=== PATIENT | female | born 1985 | race Caucasian/White ===

== ENCOUNTER 2016-07-26 06:40 | Inpatient (IN) | payer OTHER ==
[2016-07-26] MEDS ORDERED: ELECTROLYTE-148 SOLN 500 ML IV ONE (07:00)
[2016-07-26] MEDS ORDERED: CITRIC ACID/SODIUM CITRATE 30 ML UNIT-DOSE CUP PO ONE (07:00)
[2016-07-26] MEDS: ELECTROLYTE-148 SOLN 1,000 ML IV SCH (08:00)
[2016-07-26 08:20] VITALS: BMI 32.2
--- NOTE | 2016-07-26 08:22 | HP ---
Past Medical History - Primary Care Physician PCP:: Aimee Yan - Admission Chief Complaint: 30yo P2 at 39.4wks prior c/s for twin gestation, presents for elective repeat c/s, +FM, no LOF, no Ctx, no VB History Source: Patient Limitations to Obtaining History: No Limitations - Past Medical History Gastrointestinal: Yes: Hemorrhoids (s/p repair) ...: 3 ...Para: 2 ...Term: 2 ...: 0 ...Spon : 1 ...Induced : 0 ...Multiple Gestation: 1 ...LMP: 10/23/15 ... Weeks Gestation by Dates: 39.4 ...EDC by Dates: 07/29/16 - Past Surgical History Past Surgical History: Yes: Hx Myomectomy: No Hx Transabdominal Cerclage: No - Smoking History Smoking history: Never smoked Have you smoked in the past 12 months: No - Alcohol/Substance Use Hx Alcohol Use: No - Social History Usual Living Arrangement: Yes: With Spouse History of Recent Travel: No Home Medications - Allergies Allergies/Adverse Reactions: Allergies Allergy/AdvReac Type Severity Reaction Status Date / Time No Known Drug Allergies Allergy Verified 06/25/15 10:37 - Home Medications Home Medications: Ambulatory Orders Vitamins (Sjr) - 1 tab PO DAILY 07/26/16 Review of Systems - Review of Systems Constitutional: reports: No Symptoms Eyes: reports: No Symptoms HENT: reports: No Symptoms Neck: reports: No Symptoms Cardiovascular: reports: No Symptoms Respiratory: reports: No Symptoms Gastrointestinal: reports: No Symptoms Genitourinary: reports: No Symptoms Breasts: reports: No Symptoms Reported Musculoskeletal: reports: No Symptoms Integumentary: reports: No Symptoms Neurological: reports: No Symptoms Endocrine: reports: No Symptoms Hematology/Lymphatic: reports: No Symptoms Psychiatric: reports: No Symptoms Pain Intensity: 0 Physical Exam - Maternity Constitutional: Yes: Well Nourished Eyes: Yes: WNL HENT: Yes: WNL Neck: Yes: WNL Cardiovascular: Yes: WNL Lungs: Clear to auscultation Breast(s): Yes: WNL - Abdominal Exam/OB Fundal Height: 39 Number of Fetuses: Single Presentation: Vertex Contractions: No Monitor Mode: External Heart Rate Location: [facility] Category: I - Vaginal Exam/OB Vaginal Bleediing: No Speculum Exam: No (deferred) Amniotic Membrane Status: Intact Presentation: Vertex/Position Station: -4 - Physical Exam Musculoskeletal: Yes: WNL Extremities: Yes: WNL Edema: No Integumentary: Yes: WNL Deep Tendon Reflex Grade: Normal +2 ...Motor Strength: WNL Psychiatric: Yes: WNL Assessment/Plan 30yo P2 with h/o prior c/s for Elective repeat c/s VSS, monitoring reasuring T&S x 2 Units HCt = 37 Placenta posterior Anesthesia aware
[2016-07-26] MEDS ORDERED: TUBERCULIN PPD 5 TU/0.1ML SYRINGE (IN PATIENT USE ONLY) ID ONE (10:00)
[2016-07-26] MEDS ORDERED: WITCH HAZEL 50% (TUCKS) 40 PAD/JAR PAD TP PRN (10:52)
[2016-07-26] MEDS ORDERED: IBUPROFEN 800 MG/8 ML IJ IVPB PRN (10:52)
[2016-07-26] MEDS ORDERED: BENZOCAINE 20% 57 GM BOTTLE TP PRN (10:52)
[2016-07-26] MEDS ORDERED: METHYLERGONOVINE MALEATE 0.2 MG/1 ML AMP IM PRN (10:52)
--- NOTE | 2016-07-26 10:59 | OP ---
Operative Note - Note: Operative Date: 07/26/16 Operation: at EGA 39w4d. Prior C/S Findings: Live baby boy in vtx presentation, no meconium in amniotic fluid, 9/9. Normal ut/tubes/ovaries. Post-Operative Diagnosis: Same as Pre-op Surgeon: Aimee Yan Installation Coordinator: Telly Singleton Anesthesiologist/PRINTER SLOTTER FEEDER: Lyubov Walter Anesthesia: Spinal Specimens Removed: Placenta Estimated Blood Loss (mls): 500 Drains & Tubes with Location: Springer Cath Drains, Volume Out (mls): 100 Blood Volume Replaced (mls): 0 Fluid Volume Replaced (mls): 1,400 Operative Report Dictated: Yes
[2016-07-26] MEDS ORDERED: ONDANSETRON 4 MG/2 ML VIAL IVPB PRN (11:05)
[2016-07-26] MEDS ORDERED: ACETAMINOPHEN 1000 MG/100 ML VIAL (NON FORMULARY) IVPB PRN (11:06)
[2016-07-26] MEDS: OXYTOCIN 20 UNITS in 0.9% NS 1,000 ML IV SCH ×2 (11:35→14:59)
--- NOTE | 2016-07-27 06:57 | PN ---
Post Progress Note - Subjective Subjective: 30 yo P2 now PPD # 1 Pain controlled, voided, ambulated, + flatus Post Day: 1 Type of Delivery: Repeat C/S Vital Signs: Vital Signs Temperature 98.3 F 07/27/16 06:00 Pulse Rate 68 07/27/16 06:00 Respiratory Rate 20 07/27/16 06:00 Blood Pressure 116/64 07/27/16 06:00 O2 Sat by Pulse Oximetry (%) 99 07/26/16 11:45 Breast Exam: Yes: Soft Uterus: Yes: Fundus Firm Incision: Yes: Dressing dry and intact Abdomen/GI: Yes: Abdomen soft, Passing flatus Lochia: Yes: Rubra Lochia, amount: Small Extremities: Yes: Calves non-tender Assessment/Plan 30yo P2 with s/p Elective repeat c/s POD # 1 VSS, Doing well [place] ambulation, reg. diet cont. routine PP care follow CBC
[2016-07-27 07:28] LABS: BASOPHIL 0.2 % (0-2.0); EOSINOPHIL 0.4 % (0-4.5); MCH 29.8 pg (25.7-33.7); MCHC 33.8 g/dl (32.0-36.0); MEAN CELL VOLUME 88.3 fl (80-96); MEAN PLT VOLUME 9.6 fl (7.5-11.1); NEUTROPHILS 60.7 % (42.8-82.8); PLATELET COUNT 169 K/MM3 (134-434); RDW 13.4 % (11.6-15.6); WHITE BLOOD COUNT 7.3 K/mm3 (4.0-10.0)
[2016-07-27] MEDS: SIMETHICONE 80 MG TAB.CHEW (FP) PO PRN ×4 (08:03→22:51)
[2016-07-27] MEDS: oxyCODONE HCL 5 MG TABLET PO PRN ×4 (08:03→22:51)
[2016-07-27] MEDS: IBUPROFEN 600 MG TABLET (FP) PO PRN ×4 (08:08→22:51)
[2016-07-27] MEDS: ENOXAPARIN NA (PORCINE) 40 MG/0.4 ML DISP.SYRIN SQ SCH (09:43)
[2016-07-27] MEDS: PRENATAL VITAMINS W/ FOLIC ACID TABLET (FP) PO SCH (11:35)
[2016-07-27] MEDS: BISACODYL 10 MG SUPP.RECT RC PRN (12:24)
--- NOTE | 2016-07-27 12:45 | PN ---
Progress Note (short form) - Note Progress Note: Anesthesia postop note 30 y/o F s/p spinal anesthesia for repeat section duramorph for postop pain management POD#1 vss, aaox3, pain well controlled, ambulating. No anesthesia complications.
[2016-07-27] MEDS: OXYTOCIN 20 UNITS in 0.9% NS 1,000 ML IV SCH (19:43)
[2016-07-27] MEDS: ELECTROLYTE-148 SOLN 1,000 ML IV SCH (19:43)
[2016-07-27] MEDS: SENNOSIDES/DOCUSATE COMBO (SENNA PLUS) TABLET (UD) PO PRN (22:50)
[2016-07-28] MEDS: ACETAMINOPHEN 325 MG TABLET (FP) PO PRN ×4 (03:02→20:37)
[2016-07-28] MEDS: oxyCODONE HCL 5 MG TABLET PO PRN ×3 (03:03→20:38)
[2016-07-28] MEDS: SIMETHICONE 80 MG TAB.CHEW (FP) PO PRN ×4 (03:03→20:37)
[2016-07-28] MEDS: IBUPROFEN 600 MG TABLET (FP) PO PRN ×4 (03:03→20:37)
[2016-07-28] MEDS: ENOXAPARIN NA (PORCINE) 40 MG/0.4 ML DISP.SYRIN SQ SCH (09:13)
[2016-07-28] MEDS: PRENATAL VITAMINS W/ FOLIC ACID TABLET (FP) PO SCH (09:13)
--- NOTE | 2016-07-28 13:54 | PN ---
Post Progress Note - Subjective Subjective: No complaints. Ambulating well, passing flatus, no nausea or vomiting Post Day: 2 Type of Delivery: Repeat C/S Vital Signs: Vital Signs Temperature 97.7 F 07/28/16 08:39 Pulse Rate 71 07/28/16 08:39 Respiratory Rate 20 07/28/16 08:39 Blood Pressure 112/69 07/28/16 08:39 O2 Sat by Pulse Oximetry (%) 99 07/26/16 11:45 Breast Exam: Yes: Soft Uterus: Yes: Fundus Firm, Fundus below umbilicus, Non-tender Incision: Yes: Sutures intact Abdomen/GI: Yes: Abdomen soft, Passing flatus, Tolerating PO Lochia: Yes: Rubra Lochia, amount: Small Extremities: Yes: Calves non-tender Perineum: Yes: Intact Activity: Ambulating - Labs Labs: CBC WBC 7.3 K/mm3 (4.0-10.0) 07/27/16 06:00 RBC 3.47 M/mm3 (3.60-5.2) L 07/27/16 06:00 Hgb 10.4 GM/dL (10.7-15.3) L D 07/27/16 06:00 Hct 30.6 % (32.4-45.2) L D 07/27/16 06:00 MCV 88.3 fl (80-96) 07/27/16 06:00 MCHC 33.8 g/dl (32.0-36.0) 07/27/16 06:00 RDW 13.4 % (11.6-15.6) 07/27/16 06:00 Plt Count 169 K/MM3 (134-434) 07/27/16 06:00 MPV 9.6 fl (7.5-11.1) 07/27/16 06:00 Neutrophils % 60.7 % (42.8-82.8) 07/27/16 06:00 Lymphocytes % 29.1 % (8-40) 07/27/16 06:00 Monocytes % 9.6 % (3.8-10.2) 07/27/16 06:00 Eosinophils % 0.4 % (0-4.5) 07/27/16 06:00 Basophils % 0.2 % (0-2.0) 07/27/16 06:00 Problem List - Problems (1) delivery delivered Assessment/Plan: 30yo female s/p repeat LT C/S, doing well stable, afebrile. care instructions reviewed. Continue routine postop care. Ambulation encouraged. Code(s): O82 - ENCOUNTER FOR DELIVERY WITHOUT INDICATION
[2016-07-28] MEDS: SENNOSIDES/DOCUSATE COMBO (SENNA PLUS) TABLET (UD) PO PRN (20:37)
[2016-07-29] MEDS: ACETAMINOPHEN 325 MG TABLET (FP) PO PRN ×4 (00:25→13:20)
[2016-07-29] MEDS: IBUPROFEN 600 MG TABLET (FP) PO PRN ×4 (00:25→13:19)
[2016-07-29] MEDS: oxyCODONE HCL 5 MG TABLET PO PRN ×3 (00:25→08:17)
[2016-07-29 07:19] LABS: BASOPHIL 0.5 % (0-2.0); EOSINOPHIL 1.7 % (0-4.5); MCH 29.6 pg (25.7-33.7); MCHC 33.5 g/dl (32.0-36.0); MEAN CELL VOLUME 88.3 fl (80-96); MEAN PLT VOLUME 9.3 fl (7.5-11.1); NEUTROPHILS 56.8 % (42.8-82.8); PLATELET COUNT 181 K/MM3 (134-434); RDW 13.4 % (11.6-15.6); WHITE BLOOD COUNT 6.2 K/mm3 (4.0-10.0)
[2016-07-29] MEDS: SIMETHICONE 80 MG TAB.CHEW (FP) PO PRN (08:15)
[2016-07-29 09:26] VITALS: BP 114/73; PULSE 59; TEMP 98.1
[2016-07-29] MEDS: PRENATAL VITAMINS W/ FOLIC ACID TABLET (FP) PO SCH (10:09)
[2016-07-29] MEDS: ENOXAPARIN NA (PORCINE) 40 MG/0.4 ML DISP.SYRIN SQ SCH (10:09)
[2016-07-29] MEDS: BISACODYL 10 MG SUPP.RECT RC PRN (13:21)
--- NOTE | 2016-07-29 17:25 | PATH ---
Surgical Pathology Report Patient Name: TWILA RAIN [facility]. Rec. 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 Specimen(s) Received PLACENTA Clinical History twins; spontaneous x1 C. Section 2014 Final Diagnosis PLACENTA, DELIVERY: FOCALLY DISRUPTED THIRD TRIMESTER PLACENTA WITH THREE VESSEL UMBILICAL CORD AND UNREMARKABLE PLACENTAL MEMBRANES. Electronically Signed Abraham Billy M.D. Gross Description The specimen is received fresh labeled placenta and is a 474 gram, 19.0 x 15.0 x 2.0 cm. placenta with attached membranes and umbilical cord. The attached membranes are velarde, thick, cloudy and insert marginally. The umbilical cord measures 39 cm. in length and averages 1.1 cm. in diameter. The cord inserts eccentrically, 4.5 cm. to the nearest margin. No true knots or strictures are identified. Cut surface of the umbilical cord reveals 3 vessels. The surface is dallas-blue with minimal fibrin deposition and appropriate caliber vessels. The maternal surface is red-brown with focal defects. Sectioning reveals red-brown, spongy parenchyma. No lesions are identified. Blanket Maker sections are submitted in three cassettes as follows: 1- membrane rolls and umbilical cord; 2-3- full thickness sections of placenta. 07/28/201607/28/2016
--- NOTE | 2016-08-08 19:04 | DS ---
Physical Exam-FLORIST HELPER Vital Signs: Vital Signs Temperature 98.1 F 07/29/16 09:23 Pulse Rate 59 L 07/29/16 09:23 Respiratory Rate 18 07/29/16 09:23 Blood Pressure 114/73 07/29/16 09:23 O2 Sat by Pulse Oximetry (%) 99 07/26/16 11:45 Constitutional: Yes: Well Nourished Eyes: Yes: WNL Neck: Yes: WNL Cardiovascular: Yes: WNL Respiratory: Yes: WNL Gastrointestinal: Yes: WNL, Normal Bowel Sounds ....Post : Yes: Uterus firm, Uterus non-tender, Slight lochia rubra Breast(s): Yes: WNL Musculoskeletal: Yes: WNL Extremities: Yes: WNL Wound/Incision: Yes: Clean/Dry, Sutures Intact Neurological: Yes: WNL Psychiatric: Yes: WNL Labs: CBC, BMP 07/29/16 06:30 Delivery - Delivery Section: Repeat Type of Anesthesia: Spinal Episiotomy/Laceration: None EBL (cc): 500 Delivery, Single - Stages of Labor Date of Delivery: 07/26/16 Time of Delivery: 09:56 Time Placenta Delivered: 09:57 Placenta: Yes: Expressed - Condition of Infant Tack Driller/Metal Fabricator Present: Yes Name: Indu Yates Gender: Male Weight: 7 lb 8 oz Position: Left, OT Total Hours ROM (Hrs/Mins): 2mins - 1 Minute Total Score: 9 5 Minutes Total Score: 9 - Feeding Plan Initial Plan: Exclusive throughout hospitalization Remarks - Remarks Remarks: 30 you P2 s/p repeat c/s uncomplicated post course NPV x 6 wks RTO 1 and 6 wks Discharge Summary Reason For Visit: SCHEDULED Condition: Good - Instructions Diet, Activity, Other Instructions: call and schedule appointment 1 week for incision check. Referrals: Aimee Yan MD [Staff Physician] - Disposition: HOME - Home Medications Comprehensive Discharge Medication List: Ambulatory Orders Vitamins (Sjr) - 1 tab PO DAILY 07/26/16 Ibuprofen [Motrin -] 600 mg PO TID #90 tablet 07/29/16
--- NOTE | 2016-08-09 11:57 | OP ---
DATE OF OPERATION: 07/26/2016 DICTATED BY: Drake Bernstein MD PROCEDURE: Repeat section at 39-4/7 weeks, elective repeat POSTOPERATIVE PROCEDURE: Repeat section at 39-4/7 weeks, elective repeat. SURGEON: Drake Bernstein MD COLLAR TURNER OPERATOR: Telly Singleton MD ANESTHESIOLOGIST: Lyubov Walter MD ANESTHESIA: Spinal. SPECIMENS REMOVED: Viable baby boy and placenta. ESTIMATED BLOOD LOSS: 500 mL. Full week without 100 mL of urine. FLUID REPLACED: 1400 mL. FINDINGS: Live baby boy who was vertex presentation, no meconium and amniotic fluid clear. is 9 of 9. Normal uterus, tubes and ovaries. DESCRIPTION OF THE OPERATIVE PROCEDURE: After obtaining informed consent, patient was taken to the operating room where she was identified, and procedure was confirmed. Once spinal anesthesia was placed and found to be adequate, patient was positioned on the operating table in dorsal supine position with left lateral tilt, prepped and draped in the usual sterile fashion. Pfannenstiel skin incision was made with scalpel, carried down to the level of fascia. Fascia was mixed in the midline, and incision extended bilaterally with Bovis electrocautery. Superior aspect of fascial incision was elevated with Nida clamps, and underlying muscle bellies were bluntly dissected with Bovie cautery. It was also used to dissect the median raphe from overlying fascia. Lower aspect of fascial incision was taken out in a similar fashion. Rectus muscle was in the midline. Peritoneum was identified , tented and incised with good visualization of underlying organs. Peritoneal defect was extended with Bovie cautery via stretching with good visualization of underlying organs. The abdominal cavity identified the uterine rotation. Bladder blade was inserted, thus the uterine peritoneum was elevated with pickups and entered sharply with Metzenbaum scissors extended bilaterally. Bladder flap was developed digitally and retracted with bladder blade. A low transverse uterine incision was made with the scalpel and extended bilaterally with bandage scissors. Subsequently, the hand of the profiling machine setup operator was placed into the hysterotomy incision grasping the infant's vertex head that was delivered atraumatically, and the rest of the was delivered atraumatically via fundal pressure. Cord was doubly clamped and cut, and was handed to the awaiting pediatric team. Placenta was massaged out of the uterus with gentle traction and sent to pathology. Uterus was cleared of clots and debris. Hysterotomy was closed with 1 Biosyn in running/locking fashion in 2 layers. Excellent hemostasis was obtained. Peritoneum and rectus muscle were re-approximated. Fascia subsequently was closed in a running fashion with 0 Vicryl. Subcutaneous tissue was irrigated and found to be hemostatic, and 3-0 Vicryl on a Randolph needle was used to close the skin. Sterile dressing was applied. All sponge flaps and needle count were correct x 2. Antibiotics were given prior to the incision. Patient tolerated the procedure well and was brought to the recovery room in stable condition. DRAKE BERNSTEIN M.D. [id number] MTDD
== END 2016-07-29 14:50 | disposition home or self-care (01) | DRG 766 ==
LOC: JLDR 06:40 → J3W 12:06
PROVIDERS: ADMIT Obstetrics & Gynecology; ATTEND Obstetrics & Gynecology
PROC: 10D00Z1 Extraction of Products of Conception, Low, Open Approach (ICD-10-PCS; principal; 2016-07-26)
DX: O34.211 Maternal care for low transverse scar from previous cesarean delivery (principal); Z3A.39 39 weeks gestation of pregnancy; Z37.0 Single live birth
CPT/HCPCS: 36415; 85025; 88307-TC

== ENCOUNTER 2018-09-16 23:05 | Inpatient (IN) | payer OTHER ==
[2018-09-16] MEDS ORDERED: DEXTROSE 5%-LACTATED RINGERS 1,000 ML IV ONE (23:45)
[2018-09-17] MEDS ORDERED: ELECTROLYTE-148 SOLN 500 ML IV ONE (01:15)
[2018-09-17] MEDS ORDERED: CITRIC ACID/SODIUM CITRATE 30 ML UNIT-DOSE CUP PO ONE (01:15)
[2018-09-17 01:42] VITALS: BMI 33.7
[2018-09-17] MEDS ORDERED: ELECTROLYTE-148 SOLN 1,000 ML IV SCH ×2 (01:45→02:15)
--- NOTE | 2018-09-17 02:12 | HP ---
Past Medical History - Primary Care Physician PCP:: Telly Singleton - Admission Chief Complaint: 32yo P2003 with at EGA 39w2d and prior C/S x 2 presented with spontaneous early labor. History of Present Illness: Prior C/S x 2 Spont early labor Vag GBS (-) History Source: Patient, Medical Record Limitations to Obtaining History: No Limitations - Past Medical History SUPERVISOR PUMPING: No: Alzheimer's, CVA, Dementia, Migraine, Multiple Sclerosis, Peripheral Neuropathy, Parkinson's, Seizure, Syncope, TIA, Vertigo, Other Cardiovascular: No: AFIB, Aneurysm, Aortic Insufficiency, Aortic Stenosis, CAD, CHF, Deep Vein Thrombosis, HTN, Hyperlipdemia, SD, Mitral Insufficiency, Mitral Stenosis, Murmur, Pulmonary Hypertension, Other Pulmonary: No: Asthma, Bronchitis, Cancer, COPD, O2 Dependent, Pneumonia, Previously Intubated, Pulmonary Embolus, Pulmonary Fibrosis, Sleep Apnea, Other Gastrointestinal: Yes: Hemorrhoids (s/p repair) Hepatobiliary: No: Cirrhosis, Cholelithiasis, Cholecystitis, Choledocholithiasis , Hepatitis A, Hepatitis B, Hepatitis C, Other Renal/: No: Renal Failure, Renal Inusuff, BPH, Cancer, Hematuria, Hemodialysis , Neurogenic Bladder, Renal Calculi, UTI, Other Reproductive: No: Ectopic , Endometriosis, Fibroids, PID, Polycystic Ovary Syndrome, Postmenopausal, Other ...: 4 ...Para: 2 ...Term: 2 ...: 0 ...Spon : 1 ...Induced : 0 ...Multiple Gestation: 1 ... Weeks Gestation by Dates: 39.2 ...EDC by Sono: 09/22/18 Heme/Onc: No: Anemia, B12 Deficiency, Bleeding Disorder, Cancer, Current Chemotherapy, Current Radiation Therapy, Hemochromatosis, Hypercoaguable State, Myeloproliferative Synd, Sickle Cell Disease, Sickle Cell Trait, Thrombocytopenia, Other Infectious Disease: No: AIDS, C-Diff, Herpes Zoster, HIV, MRSA, STD's, Tuberculosis, VREF, Other Psych: No: Addictions, Anxiety, Bipolar, Depression, Panic, Psychosis, Schizophrenia, Other Musculoskeletal: No: Bursitis, Chronic low back pain, Hemiparesis, Hemiplegia, Osteoarthritis, Paraplegia, Other Rheumatology: No: Fibromyalgia, Gout, Lupus, Rheumatoid Arthritis, Sarcoidosis, Vasculitis, Other ENT: No: Allergic Rhinitis, Sinusitis, Other Endocrine: No: Pondera's Disease, Ramirez's Disease, Diabetes Insipidus, Diabetes Mellitus, Hyperparathyroidism, Hyperthyroidism, Hypothyroidism, Osteopenia, SIADH, Other Dermatology: No: Basal Cell, Cellulitis, Eczema, Melanoma, Psoriasis, Squamous Cell, Other - Past Surgical History Past Surgical History: Yes: Hx Myomectomy: No Hx Transabdominal Cerclage: No - Smoking History Smoking history: Never smoked Have you smoked in the past 12 months: No - Alcohol/Substance Use Hx Alcohol Use: No History of Substance Use: reports: None - Social History Usual Living Arrangement: Yes: With Spouse, With Child ADL: Independent History of Recent Travel: No Home Medications - Allergies Allergies/Adverse Reactions: Allergies Allergy/AdvReac Type Severity Reaction Status Date / Time No Known Drug Allergies Allergy Verified 09/16/18 23:50 - Home Medications Home Medications: Ambulatory Orders Vitamins (Sjr) - 1 tab PO DAILY 07/26/16 Family Disease History - Family Disease History Family History: Denies Review of Systems - Review of Systems Constitutional: reports: No Symptoms Eyes: reports: No Symptoms HENT: reports: No Symptoms Neck: reports: No Symptoms Cardiovascular: reports: No Symptoms Respiratory: reports: No Symptoms Gastrointestinal: reports: No Symptoms Genitourinary: reports: No Symptoms Breasts: reports: No Symptoms Reported Musculoskeletal: reports: No Symptoms Integumentary: reports: No Symptoms Neurological: reports: No Symptoms Endocrine: reports: No Symptoms Hematology/Lymphatic: reports: No Symptoms Psychiatric: reports: No Symptoms Pain Intensity: 3 Physical Exam - Maternity Vital Signs: Vital Signs Temperature 98.6 F 09/16/18 23:57 Pulse Rate 85 09/16/18 23:57 Respiratory Rate 20 09/16/18 23:57 Blood Pressure 127/82 09/16/18 23:57 O2 Sat by Pulse Oximetry (%) Constitutional: Yes: Well Nourished, No Distress, Calm Eyes: Yes: WNL, Conjunctiva Clear HENT: Yes: WNL, Atraumatic, Normocephalic Neck: Yes: WNL, Supple, Trachea Midline Cardiovascular: Yes: WNL, Regular Rate and Rhythm Breast(s): Yes: WNL - Abdominal Exam/OB Fundal Height: 39 Number of Fetuses: Single Presentation: Vertex Contractions: Yes Regularity: Irregular Intensity: Mild Monitor Mode: External Heart Rate (range): 130 Heart Rate Location: Midline Category: I Accelerations: Non-Uniform Decelerations: None - Vaginal Exam/OB Vaginal Bleediing: No Speculum Exam: No Dilatation (cm): 1 Effacement (%): 50 Amniotic Membrane Status: Intact Station: -3 - Physical Exam Musculoskeletal: Yes: WNL Extremities: Yes: WNL Edema: No Integumentary: Yes: WNL Deep Tendon Reflex Grade: Normal +2 ...Motor Strength: WNL Psychiatric: Yes: WNL, Alert, Oriented Hemorrhage Risk Assessment - Risk Factors Medium Risk Factors: Yes: Prior , uterine surgery,or multiple laparotomies High Risk Factors: Yes: None Risk Score: 1 Risk Level: Medium Risk Imaging - Results Ultrasound: Report Reviewed Assessment/Plan 32yo P2003 with at EGA 39w2d and prior C/S x 2 presented with spontaneous early labor. The decision was made to proceed with delivery by C/S. We discussed the risks and benefits of C/S at length, including but not limited to scarring, pain, bleeding, infection, injury to underlying organs and structures, need for additional surgery to repair/treat any problems or complications, complications/injuries, etc. The pt verbalized her understanding and requested to proceed with surgery. The pt is aware that all surgeries have risks and no guarantees can be provided.
[2018-09-17] MEDS ORDERED: morphine SULFATE/Preservative Free 0.5 MG/ML (1cc Syringe) ONE (02:20)
[2018-09-17] MEDS ORDERED: PHENYLEPHRINE HCL 10 MG/1 ML SINGLE DOSE VIAL ONE (02:38)
[2018-09-17] MEDS ORDERED: ceFAZolin SODIUM 1 GM VIAL ONE (02:40)
[2018-09-17] MEDS ORDERED: ONDANSETRON 4 MG/2 ML VIAL IVPUSH PRN (03:43)
[2018-09-17] MEDS ORDERED: OXYTOCIN 20 UNITS in 0.9% NS 20 UNIT/1,000 ML INFUS.BAG IV SCH ×2 (05:00→10:30)
[2018-09-17] MEDS ORDERED: OXYTOCIN 20 UNITS in 0.9% NS 20 UNIT/1,000 ML INFUS.BAG IV ONE (05:18)
[2018-09-17] MEDS: IBUPROFEN 800 MG/8 ML IJ IVPB PRN ×3 (09:06→22:59)
[2018-09-17] MEDS ORDERED: ENOXAPARIN NA (PORCINE) 40 MG/0.4 ML DISP.SYRIN SQ SCH (10:00)
[2018-09-17] MEDS ORDERED: TUBERCULIN PPD 5 TU/0.1ML SYRINGE (IN PATIENT USE ONLY) ID ONE (10:00)
[2018-09-17] MEDS ORDERED: WITCH HAZEL 50% (TUCKS) 40 PAD/JAR PAD TP PRN (10:21)
[2018-09-17] MEDS ORDERED: METHYLERGONOVINE MALEATE 0.2 MG/1 ML AMP IM PRN (10:21)
--- NOTE | 2018-09-17 10:29 | OP ---
Operative Note - Note: Operative Date: 09/17/18 Pre-Operative Diagnosis: at EGA 39w3d. Spont labor. Prior C/S x 2 Operation: Repeat LT C/S Findings: Live baby girl in vtx presentation. No meconium in amniotic fluids. Normal uterus, tubes, ovaries. Post-Operative Diagnosis: Same as Pre-op Surgeon: Telly Singleton Hr Clerk: Milton Brown Anesthesiologist/CONCRETE PRECAST MOULDER: Mike Burgos Anesthesia: Spinal Specimens Removed: Placenta Estimated Blood Loss (mls): 700 Drains & Tubes with Location: Springer cath Drains, Volume Out (mls): 300 Blood Volume Replaced (mls): 0 Fluid Volume Replaced (mls): 1,100 Operative Report Dictated: Yes
--- NOTE | 2018-09-17 11:01 | OP ---
DATE OF OPERATION: 09/17/2018 PREOPERATIVE DIAGNOSES: 1. with estimated gestational age of 39 weeks and 3 days. 2. Spontaneous labor. 3. Previous section x2. POSTOPERATIVE DIAGNOSES: 1. with estimated gestational age of 39 weeks and 3 days, delivered. 2. Spontaneous labor. 3. Previous section x2. PROCEDURE: Repeat low transverse section via Pfannenstiel skin incision. SURGEON: Telly Singleton MD BACCARAT MANAGER: DANIELA Christiansen INDICATION FOR BACCARAT MANAGER: The assistant mechanic was necessary for safe completion of section. The assistant mechanic remained throughout the entire surgery. The assistant mechanic was involved in retraction, achieving hemostasis, delivering of the baby and expediting the safe completion of the surgery. The assistant mechanic was called prior to the surgery and Milton Brown was the only available surgical orderly at this time. PATHOLOGY: Placenta. ESTIMATED BLOOD LOSS: 700 mL URINE OUTPUT: 300 mL of clear urine at the end of the procedure. INTRAVENOUS FLUIDS: 1100 mL COMPLICATIONS: None. FINDINGS: Live baby girl in vertex presentation. No meconium in amniotic fluids. Normal uterus, fallopian tubes and ovaries. PROCEDURE DESCRIPTION: The patient was met preoperatively. Risks, benefits and alternatives of surgery were discussed in details. All questions were answered. The consent form was reviewed and signed. The patient requested to proceed with the surgery. She was brought to the OR with IV running. The patient was placed on the surgical table in the sitting position. The spinal anesthesia was achieved without difficulty. The patient was then placed in a supine position with a leftward tilt. A Springer catheter was inserted and left to drain to gravity. The patient was prepped and draped in the usual sterile fashion. A timeout was conducted as per standard protocol. The surgeons then proceeded with the operation. A Pfannenstiel skin incision was made with a knife along the prior scar. The incision was taken down to the level of the fascia. The fascia was incised in the midline. The incision was extended bilaterally using Mireles scissors. The fascia was then dissected away from the rectus muscles superiorly and inferiorly. The rectus muscles were in the midline. The peritoneum was identified and entered sharply. The peritoneal incision was extended superiorly and inferiorly using Metzenbaum scissors. The bladder peritoneum was then dissected away from the lower uterine segment using sharp dissection. The bladder was reflected downwards using a Hedley retractor. The lower segment of the uterus was incised transversely. The incision was extended bilaterally using bandage scissors. The amniotic bag was ruptured and the baby was delivered from vertex presentation without complications. The baby was crying spontaneously. The umbilical cord was clamped and cut. The baby was handed to the awaiting business technology analyst. The placenta was then delivered manually and without complications. The uterus was cleared of all clots and debris using laparotomy laps. The uterine incision was repaired using a 0 Biosyn suture with a running locking stitch. Good hemostasis was noted. The uterine incision was imbricated using a 0 Biosyn suture with good hemostasis and approximation. The bladder peritoneum was then approximated using a 0 Biosyn suture. The operative site was irrigated using copious amounts of normal saline. Once the saline was aspirated, good hemostasis was confirmed. The parietal peritoneum was then closed using a 2-0 chromic suture. The rectus muscles were approximated using several interrupted 2-0 chromic sutures. The fascia was closed using a 0 Vicryl suture with a running stitch. The subcutaneous adipose tissues and Michelle's fascia were approximated using several interrupted 2-0 chromic sutures. The skin was closed using a 3-0 Vicryl suture with a subcutaneous stitch. Sponge, lap and needle counts were correct. The patient tolerated the procedure well and was transferred to recovery room in stable condition and awake. Carl [id number] MTDD
--- NOTE | 2018-09-17 11:22 | PN ---
Delivery - Delivery Vaginal Delivery: No Problems, Spontaneous Section: Repeat, Low Flap Transverse Type of Anesthesia: Spinal Episiotomy/Laceration: None EBL (cc): 1,100 Delivery, Single - Stages of Labor Date 1st Stage Initiatied: 09/16/18 Time 1st Stage Initiated: 19:30 Date of Delivery: 09/17/18 Time of Delivery: 03:00 Date Placenta Delivered: 09/17/18 Time Placenta Delivered: 03:01 Placenta: Yes: Expressed, Manual Removal, Normal Configuration - Condition of Infant Cap Inspector/Sample Book Maker Present: Yes Name: Roberto Patrick Infant Gender: Female Weight: 3.26 kg Position: Right, OT Total Hours ROM (Hrs/Mins): 1 minute - 1 Minute Total Score: 9 5 Minutes Total Score: 9 - [place] Feeding Plan Initial Plan: Elected not to breastfeed exclusively throughout hospitalization
[2018-09-17] MEDS: SIMETHICONE 80 MG TAB.CHEW (FP) PO PRN (22:41)
[2018-09-17] MEDS: oxyCODONE HCL 5 MG TABLET PO PRN (22:41)
[2018-09-17] MEDS: ACETAMINOPHEN 325 MG TABLET (FP) PO PRN (22:42)
[2018-09-18] MEDS: ACETAMINOPHEN 325 MG TABLET (FP) PO PRN ×4 (03:24→20:10)
[2018-09-18] MEDS: oxyCODONE HCL 5 MG TABLET PO PRN ×3 (03:25→15:01)
--- NOTE | 2018-09-18 07:46 | PN ---
Progress Note (short form) - Note Progress Note: S/p C Section under spinal anesthesia with duramorph uneventful.Patient stable and has little pain for which she is on medication.No any anesthesia related problem.Patient DC from the anesthesia care.
[2018-09-18 08:01] LABS: BASO % 0.4 % (0-2.0); EOS % 1.1 % (0-4.5); HEMATOCRIT 34.6 % (32.4-45.2); HEMOGLOBIN 11.5 GM/dL (10.7-15.3); LYMPH % 21.6 % (8-40); MCH 28.9 pg (25.7-33.7); MCHC 33.1 g/dl (32.0-36.0); MEAN CELL VOLUME 87.3 fl (80-96); MEAN PLT VOLUME 9.2 fl (7.5-11.1); MONO % 7.6 % (3.8-10.2); NEUT % 69.3 % (42.8-82.8); PLATELET COUNT 204 K/MM3 (134-434); RBC 3.96 M/mm3 (3.60-5.2); RDW 13.3 % (11.6-15.6); WHITE BLOOD COUNT 7.2 K/mm3 (4.0-10.0)
[2018-09-18] MEDS: SIMETHICONE 80 MG TAB.CHEW (FP) PO PRN ×3 (08:24→20:10)
--- NOTE | 2018-09-18 09:16 | PN ---
Post Progress Note - Subjective Subjective: Patient without acute complaints. Reports tolerating oral intake without nausea or vomiting. Ambulating without dizziness. Denies fevers or chills. Pain well controlled with oral pain medication. Pumping/breast feeding without issue. Passing flatus. Post Day: 1 Type of Delivery: Repeat C/S Vital Signs: Vital Signs Temperature 97.8 F 09/18/18 08:15 Pulse Rate 74 09/18/18 08:15 Respiratory Rate 20 09/18/18 08:15 Blood Pressure 130/68 09/18/18 08:15 O2 Sat by Pulse Oximetry (%) 99 09/17/18 05:00 Breast Exam: Yes: Soft Uterus: Yes: Fundus Firm, Fundus below umbilicus, Non-tender Incision: Yes: Sutures intact Abdomen/GI: Yes: Abdomen soft, Passing flatus, Tolerating PO Lochia: Yes: Rubra Lochia, amount: Small Extremities: Yes: Calves non-tender Activity: Ambulating - Labs Labs: CBC WBC 7.2 K/mm3 (4.0-10.0) 09/18/18 06:30 RBC 3.96 M/mm3 (3.60-5.2) 09/18/18 06:30 Hgb 11.5 GM/dL (10.7-15.3) 09/18/18 06:30 Hct 34.6 % (32.4-45.2) 09/18/18 06:30 MCV 87.3 fl (80-96) 09/18/18 06:30 MCH 28.9 pg (25.7-33.7) 09/18/18 06:30 MCHC 33.1 g/dl (32.0-36.0) 09/18/18 06:30 RDW 13.3 % (11.6-15.6) 09/18/18 06:30 Plt Count 204 K/MM3 (134-434) 09/18/18 06:30 MPV 9.2 fl (7.5-11.1) 09/18/18 06:30 Absolute Neuts (auto) 5.0 K/mm3 (1.5-8.0) 09/18/18 06:30 Neutrophils % 69.3 % (42.8-82.8) 09/18/18 06:30 Lymphocytes % 21.6 % (8-40) 09/18/18 06:30 Monocytes % 7.6 % (3.8-10.2) 09/18/18 06:30 Eosinophils % 1.1 % (0-4.5) D 09/18/18 06:30 Basophils % 0.4 % (0-2.0) 09/18/18 06:30 Nucleated RBC % 0 % (0-0) 09/18/18 06:30 Assessment/Plan 32yo female s/p repeat LT C/S, doing well stable, afebrile. care instructions reviewed. Continue routine postop care. Ambulation encouraged.
[2018-09-18] MEDS: ENOXAPARIN NA (PORCINE) 40 MG/0.4 ML DISP.SYRIN SQ SCH (10:04)
[2018-09-18] MEDS: PRENATAL VITAMINS W/ FOLIC ACID TABLET (FP) PO SCH (10:05)
[2018-09-18] MEDS ORDERED: BISACODYL 10 MG SUPP.RECT RC PRN (10:21)
[2018-09-18 11:17] LABS: HBsAG SCREEN Negative (Negative)
[2018-09-18] MEDS: IBUPROFEN 600 MG TABLET (FP) PO PRN ×2 (12:05→20:10)
[2018-09-18 17:14] LABS: RUBELLA IgG ANTIBODY 6.13 index (Immune >0.99)
[2018-09-18] MEDS: SENNOSIDES/DOCUSATE COMBO (SENNA PLUS) TABLET (UD) PO PRN (20:09)
[2018-09-19] MEDS: IBUPROFEN 600 MG TABLET (FP) PO PRN ×4 (05:51→20:45)
[2018-09-19] MEDS: SIMETHICONE 80 MG TAB.CHEW (FP) PO PRN ×4 (05:51→20:43)
[2018-09-19] MEDS: ACETAMINOPHEN 325 MG TABLET (FP) PO PRN ×3 (05:51→15:04)
--- NOTE | 2018-09-19 06:37 | PN ---
Post Progress Note - Subjective Subjective: Patient without acute complaints. Reports tolerating oral intake without nausea or vomiting. Ambulating without dizziness. Denies fevers or chills. Pain well controlled with oral pain medication. Pumping/breast feeding without issue. Passing flatus. Post Day: 2 Type of Delivery: Repeat C/S Vital Signs: Vital Signs Temperature 98.0 F 09/18/18 20:08 Pulse Rate 72 09/18/18 20:08 Respiratory Rate 20 09/18/18 20:08 Blood Pressure 117/69 09/18/18 20:08 O2 Sat by Pulse Oximetry (%) 99 09/17/18 05:00 Breast Exam: Yes: Soft Uterus: Yes: Fundus Firm, Fundus below umbilicus Incision: Yes: Sutures intact Abdomen/GI: Yes: Abdomen soft Lochia: Yes: Rubra Lochia, amount: Small Extremities: Yes: Calves non-tender Perineum: Yes: Intact Activity: Ambulating - Labs Labs: CBC WBC 7.2 K/mm3 (4.0-10.0) 09/18/18 06:30 RBC 3.96 M/mm3 (3.60-5.2) 09/18/18 06:30 Hgb 11.5 GM/dL (10.7-15.3) 09/18/18 06:30 Hct 34.6 % (32.4-45.2) 09/18/18 06:30 MCV 87.3 fl (80-96) 09/18/18 06:30 MCH 28.9 pg (25.7-33.7) 09/18/18 06:30 MCHC 33.1 g/dl (32.0-36.0) 09/18/18 06:30 RDW 13.3 % (11.6-15.6) 09/18/18 06:30 Plt Count 204 K/MM3 (134-434) 09/18/18 06:30 MPV 9.2 fl (7.5-11.1) 09/18/18 06:30 Absolute Neuts (auto) 5.0 K/mm3 (1.5-8.0) 09/18/18 06:30 Neutrophils % 69.3 % (42.8-82.8) 09/18/18 06:30 Lymphocytes % 21.6 % (8-40) 09/18/18 06:30 Monocytes % 7.6 % (3.8-10.2) 09/18/18 06:30 Eosinophils % 1.1 % (0-4.5) D 09/18/18 06:30 Basophils % 0.4 % (0-2.0) 09/18/18 06:30 Nucleated RBC % 0 % (0-0) 09/18/18 06:30 Assessment/Plan 32yo P 4 s/p Repeat c/section VSS, Afebrile Pain controlled with Motrin Rh positive no need for RhoGam continue ambulation and routine PP care
[2018-09-19] MEDS: ENOXAPARIN NA (PORCINE) 40 MG/0.4 ML DISP.SYRIN SQ SCH (09:26)
[2018-09-19] MEDS: PRENATAL VITAMINS W/ FOLIC ACID TABLET (FP) PO SCH (09:26)
[2018-09-19] MEDS: oxyCODONE HCL 5 MG TABLET PO PRN (20:46)
[2018-09-19] MEDS: SENNOSIDES/DOCUSATE COMBO (SENNA PLUS) TABLET (UD) PO PRN (20:48)
[2018-09-20] MEDS: SIMETHICONE 80 MG TAB.CHEW (FP) PO PRN ×2 (04:14→09:35)
[2018-09-20] MEDS: IBUPROFEN 600 MG TABLET (FP) PO PRN ×2 (04:15→09:35)
[2018-09-20] MEDS: ACETAMINOPHEN 325 MG TABLET (FP) PO PRN ×2 (04:16→09:36)
[2018-09-20 06:44] LABS: BASO % 0.4 % (0-2.0); EOS % 1.3 % (0-4.5); HEMATOCRIT 34.3 % (32.4-45.2); HEMOGLOBIN 11.5 GM/dL (10.7-15.3); LYMPH % 24.8 % (8-40); MCH 29.2 pg (25.7-33.7); MCHC 33.4 g/dl (32.0-36.0); MEAN CELL VOLUME 87.5 fl (80-96); MEAN PLT VOLUME 8.7 fl (7.5-11.1); NEUT % 65.5 % (42.8-82.8); PLATELET COUNT 248 K/MM3 (134-434); RBC 3.92 M/mm3 (3.60-5.2); RDW 13.6 % (11.6-15.6); WHITE BLOOD COUNT 7.1 K/mm3 (4.0-10.0)
--- NOTE | 2018-09-20 07:59 | PN ---
Post Progress Note - Subjective Subjective: Patient without acute complaints. Reports tolerating regular diet without nausea or vomiting. Ambulating without dizziness. Denies fevers or chills. Pain well controlled with oral pain medication. Pumping/breast feeding without issue. Passing flatus and had BM. Post Day: 3 Type of Delivery: Repeat C/S Vital Signs: Vital Signs Temperature 98 F 09/19/18 21:45 Pulse Rate 63 09/19/18 21:45 Respiratory Rate 18 09/19/18 21:45 Blood Pressure 131/73 09/19/18 21:45 O2 Sat by Pulse Oximetry (%) 99 09/17/18 05:00 Breast Exam: Yes: Soft Uterus: Yes: Fundus Firm, Fundus below umbilicus, Non-tender Incision: Yes: Sutures intact Abdomen/GI: Yes: Abdomen soft, Passing flatus, Tolerating PO Lochia: Yes: Rubra Lochia, amount: Small Extremities: Yes: Calves non-tender, Edema (trace) Perineum: Yes: Intact Activity: Ambulating - Labs Labs: CBC WBC 7.1 K/mm3 (4.0-10.0) 09/20/18 06:30 RBC 3.92 M/mm3 (3.60-5.2) 09/20/18 06:30 Hgb 11.5 GM/dL (10.7-15.3) 09/20/18 06:30 Hct 34.3 % (32.4-45.2) 09/20/18 06:30 MCV 87.5 fl (80-96) 09/20/18 06:30 MCH 29.2 pg (25.7-33.7) 09/20/18 06:30 MCHC 33.4 g/dl (32.0-36.0) 09/20/18 06:30 RDW 13.6 % (11.6-15.6) 09/20/18 06:30 Plt Count 248 K/MM3 (134-434) D 09/20/18 06:30 MPV 8.7 fl (7.5-11.1) 09/20/18 06:30 Absolute Neuts (auto) 4.6 K/mm3 (1.5-8.0) 09/20/18 06:30 Neutrophils % 65.5 % (42.8-82.8) 09/20/18 06:30 Lymphocytes % 24.8 % (8-40) 09/20/18 06:30 Monocytes % 8.0 % (3.8-10.2) 09/20/18 06:30 Eosinophils % 1.3 % (0-4.5) 09/20/18 06:30 Basophils % 0.4 % (0-2.0) 09/20/18 06:30 Nucleated RBC % 0 % (0-0) 09/20/18 06:30 Assessment/Plan 32yo female s/p repeat LT C/S, doing well, stable, afebrile. care instructions reviewed. Discharge instructions reviewed Continue routine postop care. Ambulation encouraged.
[2018-09-20 08:19] VITALS: BP 124/65; PULSE 66; TEMP 98.2
[2018-09-20] MEDS: ENOXAPARIN NA (PORCINE) 40 MG/0.4 ML DISP.SYRIN SQ SCH (09:35)
[2018-09-20] MEDS: PRENATAL VITAMINS W/ FOLIC ACID TABLET (FP) PO SCH (09:35)
--- NOTE | 2018-09-20 16:46 | PATH ---
Surgical Pathology Report Patient Name: TWILA RAIN [facility]. Rec. 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 Specimen(s) Received PLACENTA Clinical History , previous x2 Twins 01/31, repeat 08/06 Final Diagnosis PLACENTA: THIRD TRIMESTER PLACENTA. TRIVASCULAR CORD. MEMBRANES WITH NO DIAGNOSTIC ABNORMALITIES. Electronically Signed Keke Parr M.D. Gross Description The specimen is received fresh labeled placenta and is a 471 gram, 17.0 x 15.0 x 2.3 cm. placenta with attached membranes and umbilical cord. The attached membranes are velarde, translucent with focal opacities and insert marginally. The umbilical cord measures 10 cm. in length and averages 1 cm. in diameter. The cord inserts eccentrically, 6 cm. to the nearest margin. No true knots or strictures are identified. Cut surface of the umbilical cord reveals 3 vessels. The surface is d[place]-blue with minimal fibrin deposition and appropriate caliber vessels. The maternal surface is red-brown with focal defects. Sectioning reveals red-brown, spongy parenchyma. No lesions are identified. Watch Assembly Instructor sections are submitted in three cassettes as follows: 1- membrane rolls and umbilical cord; 2-3- full thickness sections of placenta. /09/19/2018 saudi/09/19/2018
== END 2018-09-20 11:30 | disposition home or self-care (01) | DRG 788 ==
LOC: JDEL 23:05 → JLDR 09-17 01:15 → J3W 09-17 05:35
PROVIDERS: ADMIT Obstetrics & Gynecology; ATTEND Obstetrics & Gynecology
PROC: 10D00Z1 Extraction of Products of Conception, Low, Open Approach (ICD-10-PCS; principal; 2018-09-17)
DX: O34.219 Maternal care for unspecified type scar from previous cesarean delivery (principal); Z3A.39 39 weeks gestation of pregnancy; Z37.0 Single live birth
CPT/HCPCS: 36415; 59025; 85025; 86762; 87340; 88307-TC